=== PATIENT | female | born 1930 | race Caucasian/White ===

== ENCOUNTER 2017-05-28 16:38 | Inpatient (IN) | payer MEDICAID, OTHER ==
[~2017-05-28] VITALS: Ht 157.5 cm; Wt 74.1 kg
[2017-05-28] MEDS ORDERED: ATOR20TA PO (17:09)
[2017-05-28] MEDS ORDERED: BUME1TAB4 PO (17:09)
[2017-05-28] MEDS ORDERED: APIX2.5T PO (17:09)
[2017-05-28] MEDS ORDERED: MIRT15TA7 PO (17:09)
[2017-05-28] MEDS ORDERED: OMEP40CA37 PO (17:09)
[2017-05-28] MEDS ORDERED: FERR325T28 PO (17:09)
[2017-05-28] MEDS ORDERED: CARV3.122 PO (17:09)
[2017-05-28 17:20] LABS: BASOPHILS % (AUTO) 0.9 % (0.0-2.0); EOSINOPHILS % (AUTO) 1.2 % (0.0-7.0); HEMATOCRIT 31.4 % (31.2-41.9); HEMOGLOBIN 10.3 g/dL (10.9-14.3); LYMPHOCYTES # (AUTO) 0.5 K/uL (20.0-40.0); LYMPHOCYTES % (AUTO) 13.6 % (20.5-51.5); MEAN CORPUSCULAR HEMOGLOBIN 30.4 uug (24.7-32.8); MEAN CORPUSCULAR HGB CONC 33 g/dL (32.3-35.6); MEAN CORPUSCULAR VOLUME 92.9 fL (75.5-95.3); MONOCYTES # (AUTO) 0.4 K/uL (2.0-10.0); MONOCYTES % (AUTO) 10.3 % (0.0-11.0); NEUTROPHILS # (AUTO) 2.7 K/uL (1.8-8.9); PLATELET COUNT (AUTO) 142 K/uL (179-408); RED BLOOD CELL COUNT(AUTO) 3.38 MIL/uL (3.63-4.92); WHITE BLOOD COUNT (AUTO) 3.7 K/uL (3.8-11.8)
[2017-05-28 17:44] LABS: ALANINE AMINOTRANSFERASE 16 U/L (14-59); ALKALINE PHOSPHATASE 112 U/L (50-136); ASPARTATE AMINOTRANSFERASE 27 U/L (15-37); BILIRUBIN,DIRECT 0.3 mg/dL (0.0-0.2); BILIRUBIN,TOTAL 0.6 mg/dL (0.2-1.0); CARBON DIOXIDE 27 mmol/L (21-32); CHLORIDE 108 mmol/L (98-107); CREATININE 1.5 mg/dL (0.6-1.3); GLUCOSE 110 mg/dL (74-106); POTASSIUM 4.8 mmol/L (3.5-5.1); TOTAL PROTEIN, SERUM 7.2 g/dL (6.4-8.2); UREA NITROGEN, BLOOD 28 mg/dL (7-18)
[2017-05-28] MEDS ORDERED: FUROSEMIDE 20 MG/2 ML VIAL IV ONE (17:45)
[2017-05-28] MEDS ORDERED: FUROSEMIDE 40 MG/4 ML VIAL ONE (17:52)
[2017-05-28] MEDS ORDERED: FUROSEMIDE 40 MG/4 ML VIAL IVP SCH (18:00)
[2017-05-28] MEDS ORDERED: NITROGLYCERIN 0.4 MG/TAB BOTTLE SL PRN (18:00)
[2017-05-28 18:19] LABS: IRON, SERUM 37 ug/dL (50-175)
--- NOTE | 2017-05-28 19:30 | NUR ---
PT RECEIVED FROM ED, VIA [email or web address]. SON AND DAUGHTER AT BEDSIDE. ORIENTED TO ROOM. NIUEAN SPEAKING, DAUGHTER TO TRANSLATE. ABLE TO MAKE NEEDS KNOWN. A/OX3. V/S STABLE. IN NO ACUTE DISTRESS. NO C/O PAIN AT THIS TIME. IV INTACT AND PATENT, HEP-LOCKED. ON RA, TOLERATING WELL. AFEBRILE. V-PACING AT 60 ON THE TELE MONITOR. EMMANUEL INTACT AND PATENT, SEEN WITH CLEAR YELLOW URINE. BILATERAL LEGS ELEVATED. SAFETY MEASURES IMPLEMENTED. CALL LIGHT WITHIN REACH.
[2017-05-28 20:00] VITALS: BP 108/69
[2017-05-28] MEDS: MIRTAZAPINE 15 MG TABLET PO SCH (21:44)
[2017-05-28] MEDS: ATORVASTATIN 20 MG TABLET PO SCH (21:45)
[2017-05-28] MEDS: CARVEDILOL 3.125 MG TABLET PO SCH (21:45)
[2017-05-28] MEDS: DOCUSATE SODIUM 100 MG CAPSULE PO SCH (22:31)
[2017-05-28] MEDS ORDERED: DOCUSATE SODIUM 100 MG CAPSULE PO ONE (22:42)
[2017-05-29] VITALS: BP 90/50
[2017-05-29 04:00] VITALS: BP 120/64
--- NOTE | 2017-05-29 05:51 | NUR ---
END OF SHIFT NOTES. PT SLEPT WELL THROUGHOUT SHIFT. IN STABLE CONDITION. BP WNL. IV INTACT AND PATENT. BILATERAL LEGS ELEVATED. EMMANUEL INTACT AND PATENT. V-PACING AT 60 ON THE TELE MONITOR. ALL NEEDS ATTENDED. SAFETY MAINTAINED. CALL LIGHT WITHIN REACH.
--- NOTE | 2017-05-29 07:05 | NUR ---
Received client in bed awake, HOB at 30 degrees. No s/s of pain, SOB, distress or discomfort.
[2017-05-29] MEDS: PANTOPRAZOLE SODIUM 40 MG TABLET.DR PO SCH (08:42)
[2017-05-29] MEDS ORDERED: FUROSEMIDE 40 MG/4 ML VIAL IVP SCH (09:00)
[2017-05-29] MEDS ORDERED: Medication Not On Formulary EA (Omeprazole 40 MG) PO SCH (09:00)
[2017-05-29] MEDS ORDERED: Medication Not On Formulary EA (Apixaban (Eliquis) 2.5 MG) PO SCH (09:00)
[2017-05-29] MEDS: CARVEDILOL 3.125 MG TABLET PO SCH ×2 (09:00→17:41)
--- NOTE | 2017-05-29 09:20 | NUR ---
Note venous dropper being performed
[2017-05-29] MEDS: FERROUS SULFATE 325 MG TABEC PO SCH ×2 (09:42→17:40)
[2017-05-29] MEDS: ASPIRIN 325 MG TABLET PO SCH (09:42)
[2017-05-29 11:11] LABS: BASOPHILS % (AUTO) 0.8 % (0.0-2.0); EOSINOPHILS % (AUTO) 0.7 % (0.0-7.0); HEMATOCRIT 29.8 % (31.2-41.9); HEMOGLOBIN 9.9 g/dL (10.9-14.3); LYMPHOCYTES # (AUTO) 0.6 K/uL (20.0-40.0); LYMPHOCYTES % (AUTO) 18.3 % (20.5-51.5); MEAN CORPUSCULAR HEMOGLOBIN 30.9 uug (24.7-32.8); MEAN CORPUSCULAR HGB CONC 33 g/dL (32.3-35.6); MEAN CORPUSCULAR VOLUME 92.7 fL (75.5-95.3); MONOCYTES # (AUTO) 0.4 K/uL (2.0-10.0); MONOCYTES % (AUTO) 12.3 % (0.0-11.0); NEUTROPHILS # (AUTO) 2.1 K/uL (1.8-8.9); NEUTROPHILS % (AUTO) 67.9 % (38.5-71.5); PLATELET COUNT (AUTO) 135 K/uL (179-408); RED BLOOD CELL COUNT(AUTO) 3.21 MIL/uL (3.63-4.92); WHITE BLOOD COUNT (AUTO) 3.1 K/uL (3.8-11.8)
[2017-05-29 11:33] LABS: ALANINE AMINOTRANSFERASE 12 U/L (14-59); ALKALINE PHOSPHATASE 106 U/L (50-136); ASPARTATE AMINOTRANSFERASE 26 U/L (15-37); BILIRUBIN,TOTAL 0.7 mg/dL (0.2-1.0); CARBON DIOXIDE 24 mmol/L (21-32); CHLORIDE 106 mmol/L (98-107); CHOLESTEROL 133 mg/dL (<200); CREATININE 1.5 mg/dL (0.6-1.3); GLUCOSE 152 mg/dL (74-106); HDL CHOLESTEROL 66 mg/dL (40-60); POTASSIUM 4.9 mmol/L (3.5-5.1); TOTAL PROTEIN, SERUM 6.9 g/dL (6.4-8.2); TRIGLYCERIDES 53 MG/DL (30-150); UREA NITROGEN, BLOOD 28 mg/dL (7-18)
[2017-05-29 12:00] VITALS: BP 90/49
--- NOTE | 2017-05-29 13:33 | NUR ---
Called daughter and left her a message as requested by pharmacy in regards to her client's Eliquis
--- NOTE | 2017-05-29 15:00 | NUR ---
Noted client with family by her side
[2017-05-29 15:42] VITALS: BP 95/47
--- NOTE | 2017-05-29 16:30 | NUR ---
Eliquis was taken down to pharmacy, it was brought in my client's daughter as requested by pharmacy
[2017-05-29] MEDS: FUROSEMIDE 40 MG/4 ML VIAL IVP SCH (17:40)
--- NOTE | 2017-05-29 19:30 | NUR ---
Client is awake and in bed at 45 % degrees. No s/s of pain, SOB, distress or discomfort. Introduced her to outbound telemarketing representative nurse.
[2017-05-29 19:55] VITALS: BP 104/48
[2017-05-29] MEDS: MIRTAZAPINE 15 MG TABLET PO SCH (20:35)
[2017-05-29] MEDS: ATORVASTATIN 20 MG TABLET PO SCH (20:35)
[2017-05-29] MEDS: IBUPROFEN 400 MG TABLET PO PRN (20:35)
[2017-05-29] MEDS: ELIQUIS 2.5 MG ***PT'S OWN MED PO SCH (20:35)
[2017-05-29] MEDS: DOCUSATE SODIUM 100 MG CAPSULE PO SCH (20:35)
[2017-05-29 20:53] VITALS: BP 104/48
[2017-05-30] VITALS (7 sets, daily range): BP systolic 96–133; BP diastolic 42–80
[2017-05-30] MEDS: PANTOPRAZOLE SODIUM 40 MG TABLET.DR PO SCH (06:05)
--- NOTE | 2017-05-30 06:39 | NUR ---
END OF SHIFT SUMMERY: Pt is resting in bed, no acute distress noted. . no episodes of N/V throughout shift. Still V-Pacing on the agricultural technician. Complained of moderate generalized pain, motrin was given with relief . fall precautions are implemented. all needs attended. Will cont to monitor and endorse pt to the next nurse.
[2017-05-30 06:51] LABS: BASOPHILS % (AUTO) 0.9 % (0.0-2.0); EOSINOPHILS % (AUTO) 1.6 % (0.0-7.0); HEMOGLOBIN 9.2 g/dL (10.9-14.3); LYMPHOCYTES # (AUTO) 0.6 K/uL (20.0-40.0); LYMPHOCYTES % (AUTO) 22.5 % (20.5-51.5); MEAN CORPUSCULAR HEMOGLOBIN 30.5 uug (24.7-32.8); MEAN CORPUSCULAR HGB CONC 33 g/dL (32.3-35.6); MEAN CORPUSCULAR VOLUME 92.8 fL (75.5-95.3); MONOCYTES # (AUTO) 0.4 K/uL (2.0-10.0); MONOCYTES % (AUTO) 15.1 % (0.0-11.0); NEUTROPHILS # (AUTO) 1.7 K/uL (1.8-8.9); NEUTROPHILS % (AUTO) 59.9 % (38.5-71.5); PLATELET COUNT (AUTO) 126 K/uL (179-408); RED BLOOD CELL COUNT(AUTO) 3.02 MIL/uL (3.63-4.92); WHITE BLOOD COUNT (AUTO) 2.9 K/uL (3.8-11.8)
[2017-05-30 07:06] LABS: CARBON DIOXIDE 28 mmol/L (21-32); CHLORIDE 107 mmol/L (98-107); CREATININE 1.7 mg/dL (0.6-1.3); GLUCOSE 89 mg/dL (74-106); MAGNESIUM 2.4 mg/dL (1.8-2.4); PHOSPHOROUS 4.7 mg/dL (2.5-4.9); POTASSIUM 4.6 mmol/L (3.5-5.1); UREA NITROGEN, BLOOD 31 mg/dL (7-18)
[2017-05-30 08:24] LABS: BASOPHILS % (MANUAL) 2 % (0-2); LYMPHOCYTES % (MANUAL) 23 % (20-40); MONOCYTES % (MANUAL) 19 % (2-10); NEUTROPHILS % (MANUAL) 56 % (42-75)
[2017-05-30] MEDS: CARVEDILOL 3.125 MG TABLET PO SCH ×2 (09:00→17:45)
[2017-05-30] MEDS: FUROSEMIDE 40 MG/4 ML VIAL IVP SCH (10:11)
[2017-05-30] MEDS: FERROUS SULFATE 325 MG TABEC PO SCH ×2 (10:12→17:45)
[2017-05-30] MEDS: ASPIRIN 325 MG TABLET PO SCH (10:12)
[2017-05-30] MEDS: ELIQUIS 2.5 MG ***PT'S OWN MED PO SCH ×2 (10:13→20:52)
[2017-05-30] MEDS: BUMETANIDE 1 MG TABLET PO SCH (17:44)
--- NOTE | 2017-05-30 19:30 | NUR ---
PT IN ROOM ALERT AWAKE IN NO ACUTE DISTRESS. CONTINUES TO SPEAK FINNISH BUT DENIES ANY SOB AT THIS TIME. NO S/S OF RESP DISTRESS NOTED. F/C INTACT. CALL LIGHT PLACED WITHIN REACH. CONTINUE TO MONITOR.
[2017-05-30] MEDS: ATORVASTATIN 20 MG TABLET PO SCH (20:01)
[2017-05-30] MEDS: DOCUSATE SODIUM 100 MG CAPSULE PO SCH (20:01)
[2017-05-30] MEDS: MIRTAZAPINE 15 MG TABLET PO SCH (20:01)
--- NOTE | 2017-05-31 01:00 | NUR ---
Pt in room asleep at this time. No acute distress noted. Continue to monitor.
--- NOTE | 2017-05-31 01:45 | NUR ---
Pt in room alert awake c/o discomfort to left ear. Minimal bleeding noted due to previous scab that was scratched off by pt. 0.2cmx0.2cm noted. Site cleansed with NS, patted dry with 4x4 gauze, and secured with bandaide. Continue to monitor. Call light placed within reach. Picture taken and placed in chart.
[2017-05-31 04:00] VITALS: BP 97/47
--- NOTE | 2017-05-31 06:00 | NUR ---
Pt in room asleep. No active bleeding from previous left ear wound. Denies any SOB or chest pain. F/c able to drain up to 500cc. No pain or discomfort noted. BP 97/47. Continue to monitor. Call light placed within reach.
[2017-05-31] MEDS: PANTOPRAZOLE SODIUM 40 MG TABLET.DR PO SCH (06:11)
[2017-05-31] MEDS: CARVEDILOL 3.125 MG TABLET PO SCH ×2 (08:44→17:00)
[2017-05-31] MEDS: BUMETANIDE 1 MG TABLET PO SCH (08:44)
[2017-05-31] MEDS: FERROUS SULFATE 325 MG TABEC PO SCH ×2 (08:44→17:20)
[2017-05-31] MEDS: ASPIRIN 325 MG TABLET PO SCH (08:46)
[2017-05-31] MEDS: ELIQUIS 2.5 MG ***PT'S OWN MED PO SCH ×2 (08:58→20:15)
[2017-05-31] MEDS ORDERED: GUAI600T53 PO (10:17)
[2017-05-31] MEDS ORDERED: AZIT1PAC PO (10:17)
[2017-05-31] MEDS: FUROSEMIDE 20 MG/2 ML VIAL IV SCH ×2 (10:56→20:15)
[2017-05-31 11:35] VITALS: BP 97/47
[2017-05-31 15:58] VITALS: BP 92/47
--- NOTE | 2017-05-31 16:20 | NUR ---
Called patient's daughter Zeinab regarding discharge. Daughter does not feel patient is ready for discharge. She states she will come to the facility tonight and wants to speak to the doctor. Called Dr. Jaci Bowen and left a message regarding daughter's concern over discharge.
--- NOTE | 2017-05-31 17:22 | NUR ---
Coreg not given. BP 91/57, P 86
--- NOTE | 2017-05-31 18:06 | NUR ---
Family is here at facility, upset about patient's transfer because they feel she is not ready to be discharged. Requested to speak to Dr. Dawson Bowen who was spoke with via phone to the patient's room to speak with the family. Family now agrees to transfer patient to [facility].
--- NOTE | 2017-05-31 18:43 | NUR ---
Spoke to Mildred case liner at [facility] to inform them patient is ready for pickup. Discharge forms completed, returned patients home meds with patients and all personal belongings. Mildred said she will contact Dr. Jaci Bowen.
--- NOTE | 2017-05-31 19:30 | NUR ---
PT ALERT AWAKE IN NO IN NO ACUTE DISTRESS. DENIES ANY CHEST PAIN OR SOB. F/C IN TACT DRAINING 100C OF CLEAR LIGHT PINK URINE. PT ABLE TO FOLLOW SIMPLE COMMANDS WITHOUT DIFFICULTY. FAMILY AT BEDSIDE ASSISTING WITH TRANSLATION. CALL LIGHT PLACED WITHIN REACH. CONTINUE TO MONITOR.
[2017-05-31 20:00] VITALS: BP 136/49
[2017-05-31] MEDS: DOCUSATE SODIUM 100 MG CAPSULE PO SCH (20:15)
[2017-05-31] MEDS: MIRTAZAPINE 15 MG TABLET PO SCH (20:15)
[2017-05-31] MEDS: ATORVASTATIN 20 MG TABLET PO SCH (20:15)
--- NOTE | 2017-06-01 01:00 | NUR ---
Pt in room asleep at this time. No acute distress or c/o SOB. Continue to monitor.
--- NOTE | 2017-06-01 05:00 | NUR ---
Pt in room asleep at this time. BP noted 108/50. Urine output noted up to 150cc. No s/s of resp distress. Call light placed within reach. HOB elevated 30 degrees and pt was repositioned. Continue to monitor.
[2017-06-01] MEDS: PANTOPRAZOLE SODIUM 40 MG TABLET.DR PO SCH (06:00)
[2017-06-01 06:36] VITALS: BP 108/50
[2017-06-01] MEDS: FUROSEMIDE 20 MG/2 ML VIAL IV SCH ×2 (08:10→20:57)
[2017-06-01] MEDS: FERROUS SULFATE 325 MG TABEC PO SCH ×2 (08:10→16:26)
[2017-06-01] MEDS: CARVEDILOL 3.125 MG TABLET PO SCH ×2 (08:16→16:24)
[2017-06-01] MEDS: ELIQUIS 2.5 MG ***PT'S OWN MED PO SCH ×4 (08:19→21:00)
[2017-06-01] MEDS: ASPIRIN 81 MG TAB.CHEW PO SCH (08:19)
--- NOTE | 2017-06-01 11:00 | NUR ---
Noted blood tinge urine in the f/c. Held eliquis. Will continue to monitor pt.
[2017-06-01 11:24] VITALS: BP 94/50
[2017-06-01] MEDS: CEFTRIAXONE 1 G in IV DEXTROSE 5% 50 ML IV SCH (11:58)
--- NOTE | 2017-06-01 12:00 | NUR ---
Dr phillips states ok to give Eliquis to patient and to send UA Specimen. Pt Suctioned per pt's request due to pt having hard time to expectorate her phlegm. Suction x 3 via oral to throat suctioning and got white mucus. RT sutioned as well and got same white mucs. Pt states she feels better after suctioning. Call light is within reach.
[2017-06-01 13:36] LABS: *BILIRUBIN,URIN NEGATIVE (NEGATIVE); *BLOOD, URINE 3+ (NEGATIVE); *COLOR,URINE YELLOW (YELLOW); *KETONES,URINE NEGATIVE (NEGATIVE); *PROTEIN,URINE 1+ (NEGATIVE); *UROBILINOGEN,URINE 0.2 E.U./dl (NORMAL); LEUKOCYTE ESTERASE ,URINE TRACE (NEGATIVE); NITRITE, URINE NEGATIVE (NEGATIVE); UGLUCOSE NEGATIVE (NEGATIVE)
[2017-06-01 13:44] LABS: EOSINOPHILS # (AUTO) 0.1 K/uL (0.0-0.7); LYMPHOCYTES # (AUTO) 0.8 K/uL (20.0-40.0); MEAN CORPUSCULAR VOLUME 92.1 fL (75.5-95.3); MONOCYTES # (AUTO) 0.7 K/uL (2.0-10.0); NEUTROPHILS # (AUTO) 3.3 K/uL (1.8-8.9)
[2017-06-01 13:50] LABS: *CLARITY,URINE HAZY (CLEAR)
[2017-06-01 13:51] LABS: BACTERIA,URINE NONE SEEN /HPF (NONE SEEN); RBC,URINE TNTC /HPF (0-3); SQUAMOUS EPITHELIAL CELL,UR FEW /HPF (NONE SEEN); WBC,URINE 0-3 /HPF (0-3)
[2017-06-01 13:53] LABS: EOSINOPHILS % (AUTO) 1.7 % (0.0-7.0); HEMATOCRIT 29.9 % (31.2-41.9); LYMPHOCYTES % (AUTO) 16.1 % (20.5-51.5); MEAN CORPUSCULAR HEMOGLOBIN 30.7 uug (24.7-32.8); MEAN CORPUSCULAR HGB CONC 33 g/dL (32.3-35.6); MONOCYTES % (AUTO) 14.6 % (0.0-11.0); NEUTROPHILS % (AUTO) 66.6 % (38.5-71.5); PLATELET COUNT (AUTO) 160 K/uL (179-408); RED BLOOD CELL COUNT(AUTO) 3.25 MIL/uL (3.63-4.92); WHITE BLOOD COUNT (AUTO) 4.9 K/uL (3.8-11.8)
[2017-06-01 15:43] VITALS: BP 94/51
--- NOTE | 2017-06-01 17:44 | NUR ---
Pt is in no acute distress. Call light is within reach.
--- NOTE | 2017-06-01 19:30 | NUR ---
PT IN ROOM ALERT AWAKE IN NO ACUTE DISTRESS. ABLE TO FOLLOW SIMPLE COMMANDS. BP NOTED 103/52. NO INCREASED HEMATURIA NOTED AT THIS TIME. DENIES ANY PAIN, DISCOMFORT OF SOB. CONTINUE TO MONITOR. CALL LIGHT PLACED WITHIN REACH. DAUGHTER АННА AWARE VIA PHONE CALL.
[2017-06-01 20:00] VITALS: BP 103/52
[2017-06-01] MEDS: ATORVASTATIN 20 MG TABLET PO SCH (20:57)
[2017-06-01] MEDS: MIRTAZAPINE 15 MG TABLET PO SCH (20:57)
[2017-06-01] MEDS: DOCUSATE SODIUM 100 MG CAPSULE PO SCH (20:57)
--- NOTE | 2017-06-02 01:00 | NUR ---
Pt in room asleep in no acute distress. No increased coughing or c/o SOB at this time. Call light placed within reach. Urine clear yellow at this time. Continue to monitor.
[2017-06-02 05:54] VITALS: BP 105/49
[2017-06-02] MEDS: PANTOPRAZOLE SODIUM 40 MG TABLET.DR PO SCH (06:31)
[2017-06-02 06:40] LABS: BASOPHILS % (AUTO) 0.9 % (0.0-2.0); EOSINOPHILS # (AUTO) 0.1 K/uL (0.0-0.7); HEMATOCRIT 31.2 % (31.2-41.9); HEMOGLOBIN 10.2 g/dL (10.9-14.3); LYMPHOCYTES # (AUTO) 0.7 K/uL (20.0-40.0); LYMPHOCYTES % (AUTO) 18.8 % (20.5-51.5); MEAN CORPUSCULAR HEMOGLOBIN 30.1 uug (24.7-32.8); MEAN CORPUSCULAR HGB CONC 33 g/dL (32.3-35.6); MONOCYTES # (AUTO) 0.6 K/uL (2.0-10.0); MONOCYTES % (AUTO) 14.8 % (0.0-11.0); NEUTROPHILS # (AUTO) 2.5 K/uL (1.8-8.9); NEUTROPHILS % (AUTO) 63.5 % (38.5-71.5); PLATELET COUNT (AUTO) 151 K/uL (179-408); RED BLOOD CELL COUNT(AUTO) 3.39 MIL/uL (3.63-4.92); WHITE BLOOD COUNT (AUTO) 3.9 K/uL (3.8-11.8)
[2017-06-02 07:06] LABS: ALANINE AMINOTRANSFERASE 10 U/L (14-59); ALKALINE PHOSPHATASE 99 U/L (50-136); ASPARTATE AMINOTRANSFERASE 23 U/L (15-37); BILIRUBIN,TOTAL 0.5 mg/dL (0.2-1.0); CARBON DIOXIDE 29 mmol/L (21-32); CHLORIDE 104 mmol/L (98-107); CREATININE 1.7 mg/dL (0.6-1.3); GLUCOSE 100 mg/dL (74-106); MAGNESIUM 2.1 mg/dL (1.8-2.4); PHOSPHOROUS 4.2 mg/dL (2.5-4.9); POTASSIUM 4.4 mmol/L (3.5-5.1); TOTAL PROTEIN, SERUM 6.6 g/dL (6.4-8.2); UREA NITROGEN, BLOOD 33 mg/dL (7-18)
[2017-06-02] MEDS: ASPIRIN 81 MG TAB.CHEW PO SCH (08:01)
[2017-06-02] MEDS: FUROSEMIDE 20 MG/2 ML VIAL IV SCH ×2 (08:01→20:48)
[2017-06-02] MEDS: CARVEDILOL 3.125 MG TABLET PO SCH ×2 (08:01→16:50)
[2017-06-02] MEDS: FERROUS SULFATE 325 MG TABEC PO SCH ×2 (08:01→16:48)
[2017-06-02] MEDS: ELIQUIS 2.5 MG ***PT'S OWN MED PO SCH ×2 (08:02→20:45)
[2017-06-02] MEDS: CEFTRIAXONE 1 G in IV DEXTROSE 5% 50 ML IV SCH (11:30)
[2017-06-02 11:42] VITALS: BP 108/55
[2017-06-02 15:40] VITALS: BP 97/52
--- NOTE | 2017-06-02 19:00 | NUR ---
RECEIVED IN BED ALERT ORIENTED, SPEAK BAHAMIAN, NO SOB NO CHEST PAIN, EMMANUEL CATH PATENT DRAINING WITH YELLOW COLOR URINE IN MODERATE AMOUNT, BLUE PHONE AT BEDSIDE, PAYROLL EXAMINER ABLE TO ANTICIPATE PATIENT NEEDS, CONT TO MONITOR
[2017-06-02 20:00] VITALS: BP 100/47
[2017-06-02] MEDS: MIRTAZAPINE 15 MG TABLET PO SCH (20:43)
[2017-06-02] MEDS: DOCUSATE SODIUM 100 MG CAPSULE PO SCH (20:43)
[2017-06-02] MEDS: ATORVASTATIN 20 MG TABLET PO SCH (20:43)
--- NOTE | 2017-06-02 21:00 | NUR ---
LASIX MEDICATION HELD AT THIS TIME BP IS LOW, RECHECK TWICE BUT LOW, NO SOB NO CONGESTION NOTED, OXYGEN SAT WNL, CONT TO MONITOR.
[2017-06-02] MEDS: IBUPROFEN 400 MG TABLET PO PRN (21:34)
[2017-06-03] MEDS: PANTOPRAZOLE SODIUM 40 MG TABLET.DR PO SCH (06:02)
[2017-06-03 06:25] VITALS: BP 99/48
[2017-06-03 06:42] LABS: BASOPHILS % (AUTO) 0.9 % (0.0-2.0); EOSINOPHILS # (AUTO) 0.1 K/uL (0.0-0.7); EOSINOPHILS % (AUTO) 2.8 % (0.0-7.0); HEMATOCRIT 29.5 % (31.2-41.9); HEMOGLOBIN 9.7 g/dL (10.9-14.3); LYMPHOCYTES # (AUTO) 0.8 K/uL (20.0-40.0); LYMPHOCYTES % (AUTO) 23.9 % (20.5-51.5); MEAN CORPUSCULAR HEMOGLOBIN 30.2 uug (24.7-32.8); MEAN CORPUSCULAR HGB CONC 33 g/dL (32.3-35.6); MEAN CORPUSCULAR VOLUME 92.3 fL (75.5-95.3); MONOCYTES # (AUTO) 0.5 K/uL (2.0-10.0); MONOCYTES % (AUTO) 14.1 % (0.0-11.0); NEUTROPHILS % (AUTO) 58.3 % (38.5-71.5); PLATELET COUNT (AUTO) 138 K/uL (179-408); WHITE BLOOD COUNT (AUTO) 3.4 K/uL (3.8-11.8)
[2017-06-03 07:20] LABS: CARBON DIOXIDE 30 mmol/L (21-32); CHLORIDE 103 mmol/L (98-107); CREATININE 1.4 mg/dL (0.6-1.3); GLUCOSE 90 mg/dL (74-106); MAGNESIUM 2.2 mg/dL (1.8-2.4); PHOSPHOROUS 4.1 mg/dL (2.5-4.9); POTASSIUM 4.4 mmol/L (3.5-5.1); UREA NITROGEN, BLOOD 31 mg/dL (7-18)
--- NOTE | 2017-06-03 08:00 | NUR ---
PT WITH NO SIGNS OR SYMPTOMS OF PAIN OR DISTRESS AT PRESENT, WILL CONTINUE TO MONITOR PATIENT
[2017-06-03] MEDS: FUROSEMIDE 20 MG/2 ML VIAL IV SCH (08:25)
[2017-06-03] MEDS: ASPIRIN 81 MG TAB.CHEW PO SCH (08:26)
[2017-06-03] MEDS: FERROUS SULFATE 325 MG TABEC PO SCH (08:26)
[2017-06-03] MEDS: CARVEDILOL 3.125 MG TABLET PO SCH (08:26)
[2017-06-03] MEDS: ELIQUIS 2.5 MG ***PT'S OWN MED PO SCH (08:28)
--- NOTE | 2017-06-03 12:00 | NUR ---
PATIENT AWAKE IN BED WITH NO OBVIOUS SIGNS OR SYMPTOMS OF DISTRESS/DISCOMFORT AT THIS TIME, CALL LIGHT WITHIN REACH.SAFETY MEASURES INITIATED
[2017-06-03 12:03] VITALS: BP 103/50
[2017-06-03] MEDS ORDERED: FUROSEMIDE 20 MG/2 ML VIAL IV SCH (12:15)
[2017-06-03] MEDS: CEFTRIAXONE 1 G in IV DEXTROSE 5% 50 ML IV SCH (12:18)
[2017-06-03 15:27] VITALS: BP 103/52
--- NOTE | 2017-06-03 16:00 | NUR ---
EMMANUEL CATH REMOVED WITHOUT DIFFICULTY.
--- NOTE | 2017-06-03 17:00 | NUR ---
ASSISTED TO BATHROOM PT ABLE TO URINATE FREELY
--- NOTE | 2017-06-03 17:22 | NUR ---
DISCHARGED HOME STABLE WITH RX AND FOLLOW-UP INSTRUCTION GIVEN TO DAUGHTER
== END 2017-06-03 17:15 | disposition home or self-care (01) | DRG 194 ==
LOC: ER 16:38 → TELE 18:51 → MED 05-30 12:17
PROVIDERS: ADMIT Internal Medicine; ATTEND Internal Medicine
DX: I13.0 Hypertensive heart and chronic kidney disease with heart failure and stage 1 through stage 4 chronic kidney disease, or unspecified chronic kidney disease (principal); N17.0 Acute kidney failure with tubular necrosis; E44.0 Moderate protein-calorie malnutrition; D68.59 Other primary thrombophilia; I49.5 Sick sinus syndrome; Z86.74 Personal history of sudden cardiac arrest; I48.2 Chronic atrial fibrillation; I42.9 Cardiomyopathy, unspecified; N39.0 Urinary tract infection, site not specified; E66.01 Morbid (severe) obesity due to excess calories; I50.33 Acute on chronic diastolic (congestive) heart failure; D63.1 Anemia in chronic kidney disease; I08.1 Rheumatic disorders of both mitral and tricuspid valves; E78.5 Hyperlipidemia, unspecified; I25.2 Old myocardial infarction; Z79.01 Long term (current) use of anticoagulants; K21.9 Gastro-esophageal reflux disease without esophagitis; B96.89 Other specified bacterial agents as the cause of diseases classified elsewhere; R31.9 Hematuria, unspecified; I25.10 Atherosclerotic heart disease of native coronary artery without angina pectoris; N18.2 Chronic kidney disease, stage 2 (mild); Z95.0 Presence of cardiac pacemaker; Z87.01 Personal history of pneumonia (recurrent); Z68.29 Body mass index [BMI] 29.0-29.9, adult; Z79.899 Other long term (current) drug therapy; Z74.09 Other reduced mobility
CPT/HCPCS: 36415; 70030-TC; 71010; 83550; 83605; 83735; 84100; 85025; 85730; 87040; 87086; 93005; 93307; 97110; 97116; 97530; A4663; J0696; J1940; J7050; J7060